=== PATIENT | male | born 1955 | race Caucasian/White ===

== ENCOUNTER → 2018-02-25 09:48 | Outpatient (CLI) | payer OTHER | END | disposition home or self-care (01) | LOC: D.RT 09:48 | DX: Z02.71 Encounter for disability determination (principal) ==

== ENCOUNTER 2018-06-22 07:42 | Day surgery (SDC) | payer BC ==
[2018-06-19 12:05] LABS: HEMATOCRIT 44.5 % (42.0-54.0); HEMOGLOBIN 15.2 g/dL (13.5-17.5); MCH 31.7 pg (26.0-34.0); MCHC 34.2 g/dL (31.0-37.0); MCV 92.7 fL (80.0-100.0); MEAN PLATELET VOLUME 10.7 fL (7.4-10.4); RBC 4.8 10x6/uL (4.20-6.10); RDW 13.7 % (11.5-14.5); WBC 6.2 10x3/uL (4.8-10.8)
[~2018-06-22] VITALS: Ht 177.8 cm; Wt 93.0 kg
[~2018-06-22 07:42] MED LIST: BENICAR40 MG PO; HYDROCODONE-APA1 TAB PO; KLONOPIN1 MG PO; NORVASC5 MG PO; TENORMIN100 MG PO
[2018-06-22] MEDS ORDERED: AMBIEN5 MG PO (08:17)
[2018-06-22 08:26] VITALS: BP 142/83; Ht 177.8 cm; Wt 93.0 kg
[2018-06-22] MEDS ORDERED: CYCLOBENZAPRINE10 MG PO (11:25)
[2018-06-22] MEDS ORDERED: OXYCODONE HCL5 MG PO (11:25)
== END 2018-06-22 16:55 | disposition home or self-care (01) ==
LOC: D.OPS 07:42 → D.PAN 10:15 → D.OPS 10:15
PROVIDERS: Anesthesiology
DX: K43.6 Other and unspecified ventral hernia with obstruction, without gangrene (principal); Z01.812 Encounter for preprocedural laboratory examination